=== PATIENT | male | born 1985 | race Caucasian/White ===

== ENCOUNTER 2018-06-26 08:48 | Inpatient (IN) | payer BC ==
[~2018-06-26] VITALS: Ht 170.2 cm; Wt 70.5 kg
--- NOTE | 2018-06-26 09:40 | NUR ---
ACCESS SERVICES REPRESENTATIVE: PT TO ED ROOM 14 FROM LOBBY AT THIS TIME
[2018-06-26] MEDS ORDERED: ATOR20TA37 PO (09:56)
[2018-06-26] MEDS ORDERED: LUVOX PO (09:56)
[2018-06-26] MEDS ORDERED: NALT50TA PO (09:56)
[2018-06-26] MEDS ORDERED: VENL150C PO (09:56)
--- NOTE | 2018-06-26 09:56 | NUR ---
TASK RN: PT AMBULATORY TO ROOM 14 W/ C/O MID ABD PAIN THAT STARTED A FEW DAYS AGO. PT STATES ON HIS WAY TO THE HOSPITAL PT STARTED EXPERIENCING A PANIC ATTACK. PT RESTING ON GURNEY. NADN. MONITORS APPLIED. PT DENIES N/V/D AND BLACK TARRY STOOL. DENIES ANY GI SURGERIES BUT HAS A GALLSTONE DX 1-2 YRS AGO. NO SURGERY RECOMMENDATIONS AT THAT POINT. PIV INITIATED. WARM BLANKET PROVIDED.
[2018-06-26] MEDS ORDERED: KETOROLAC 30 MG/1 ML IVPush ONE (10:00)
[2018-06-26] MEDS ORDERED: SODIUM CHLORIDE FLUSH 10ML SYR IVF ONE (10:00)
[2018-06-26] MEDS ORDERED: HYDROXYZINE PAMOATE 50MG CAP PO ONE (10:00)
[2018-06-26] MEDS ORDERED: KETOROLAC 30 MG/1 ML ONE ×2 (10:02→21:24)
[2018-06-26] MEDS ORDERED: hydrOXyzine 50MG TABLET ONE (10:02)
[2018-06-26 10:09] LABS: BASOPHILS # (AUTO) 0.02 x10^3/uL (0-0.1); BASOPHILS % (AUTO) 0 % (0-1); EOSINOPHILS # (AUTO) 0.14 x10^3/uL (0-0.4); EOSINOPHILS % (AUTO) 2 % (1-7); LYMPHOCYTES # (AUTO) 1.02 x10^3/uL (1-3.4); LYMPHOCYTES % (AUTO) 12 % (22-44); MD NO; MEAN CORPUSCULAR HEMOGLOBIN 30.1 pg (27.5-34.5); MEAN CORPUSCULAR HGB CONC 34.1 g/dL (33.2-36.2); MEAN CORPUSCULAR VOLUME 88.2 fL (81-97); MONOCYTES # (AUTO) 0.68 x10^3/uL (0.2-0.8); MONOCYTES % (AUTO) 8 % (2-9); NEUTROPHILS # (AUTO) 6.46 x10^3/uL (1.8-6.8); NEUTROPHILS % (AUTO) 78 % (42-75); PLATELET COUNT 243 x10^3/uL (130-400); RED BLOOD COUNT 4.93 x10^6/uL (4.38-5.82); RED CELL DISTRIBUTION WIDTH 13.2 % (9.4-14.8)
--- NOTE | 2018-06-26 10:09 | NUR ---
TASK RN: YELLOW SLIP SENT TO PHARMACY FOR VISTARIL MED.
[2018-06-26 10:10] LABS: MICROSCOPIC INDICATED
[2018-06-26 10:15] LABS: ALANINE AMINOTRANSFERASE 69 U/L (12-78); ALBUMIN 4.3 g/dL (3.4-5.0); ANION GAP 7 mmol/L (5-15); CALCIUM 9.2 mg/dL (8.5-10.1); CHLORIDE 106 mmol/L (98-107); CREATININE 1.08 mg/dL (0.7-1.3)
[2018-06-26 10:17] LABS: ALKALINE PHOSPHATASE 84 U/L (45-117); BILIRUBIN,TOTAL 0.5 mg/dL (0.2-1.0); TOTAL PROTEIN 8.2 g/dL (6.4-8.2)
[2018-06-26 10:18] LABS: CULTURE INDICATED? NO
--- NOTE | 2018-06-26 10:28 | NUR ---
TASK RN: PT TAKEN TO XR IN STABLE CONDITION.
--- NOTE | 2018-06-26 10:41 | NUR ---
TASK RN: REPORT GIVEN TO MALLORY BIANCHI.
--- NOTE | 2018-06-26 11:18 | NUR ---
NO CHANGES AT THIS TIME.
--- NOTE | 2018-06-26 11:53 | NUR ---
SBAR REPORT RECEIVED FROM TASH TEJADA.
--- NOTE | 2018-06-26 12:08 | NUR ---
PT BACK TO ROOM FROM US.
[2018-06-26] MEDS ORDERED: MORPHINE SULFATE 4 MG/ML, 1ML IVPush PRN (12:30)
[2018-06-26] MEDS ORDERED: ONDANSETRON 2MG/ML, 2ML IVPush ONE (12:30)
[2018-06-26] MEDS ORDERED: CEFOTETAN PMX 1GM/50ML 50 ML IV ONE (12:30)
[2018-06-26] MEDS ORDERED: ONDANSETRON 2MG/ML, 2ML ONE (12:38)
[2018-06-26] MEDS ORDERED: CEFOTETAN PMX 1GM/50ML 50 ML ONE (12:39)
[2018-06-26] MEDS ORDERED: MORPHINE SULFATE 4 MG/ML, 1ML ONE (12:39)
--- NOTE | 2018-06-26 12:55 | NUR ---
PER MD CARTER, NO BLOOD CS NEEDED PRIOR TO IV ABX.
[2018-06-26] MEDS ORDERED: morphine SULFATE 10 MG/ML, 1ML IVPush PRN (13:00)
[2018-06-26] MEDS ORDERED: ONDANSETRON 2MG/ML, 2ML IVPush PRN (13:00)
[2018-06-26] MEDS ORDERED: DOCUSATE 100 MG CAPSULE PO PRN (13:00)
[2018-06-26] MEDS ORDERED: hydrALAzine 20 MG/ML, 1ML IVPush PRN (13:00)
--- NOTE | 2018-06-26 13:00 | NUR ---
PT MEDICATED PER EMAR. PT TOLERATED WELL. PT AOX4. RESPS EVEN AND UNLABORED.
--- NOTE | 2018-06-26 13:19 | NUR ---
PT TO CT
--- NOTE | 2018-06-26 13:28 | NUR ---
sbar report given to dayanna christensen. all questions answered.
[2018-06-26] MEDS ORDERED: OMNIPAQUE 350 MG/ML, 100ML BOTTLE ONE (13:33)
--- NOTE | 2018-06-26 13:33 | NUR ---
pt pain level reduces 3/10 at this time.
[2018-06-26 15:02] VITALS: BP 126/77
[2018-06-26 15:19] VITALS: BP 126/77
[2018-06-26] MEDS: LACTATED RINGERS 1,000 ML IV SCH (16:45)
[2018-06-26] MEDS ORDERED: BUPIVACAINE/PF-EPI 0.5% 1:200K ONE ×2 (17:46→20:01)
[2018-06-26 19:04] VITALS: BP 118/76
[2018-06-26] MEDS ORDERED: MIDAZOLAM 1 MG/ML, 2ML ONE (20:08)
[2018-06-26] MEDS ORDERED: FENTANYL PF 250 MCG/5ML ONE (20:08)
[2018-06-26] MEDS ORDERED: CEFAZOLIN 1,000 MG ONE (20:15)
[2018-06-26] MEDS ORDERED: DEXAMETHASONE 4 MG/ML, 1ML ONE (20:15)
[2018-06-26] MEDS ORDERED: ESMOLOL 100 MG/10 ML ONE (20:15)
[2018-06-26] MEDS ORDERED: PROPOFOL 10 MG/ML, 20ML ONE (20:15)
[2018-06-26] MEDS ORDERED: ROCURONIUM 10 MG/ML,10ML ONE (20:15)
[2018-06-26] MEDS ORDERED: SUCCINYLCHOLINE 20 MG/ML, 10ML ONE (20:15)
[2018-06-26] MEDS ORDERED: SUGAMMADEX 200 MG/2 ML IVPush ONE (20:44)
[2018-06-26] MEDS ORDERED: ACETAMINOPHEN 325 MG TABLET PO PRN (21:00)
[2018-06-26] MEDS ORDERED: MEPERIDINE/PF 25MG/0.5ML IVPush PRN (21:00)
[2018-06-26] MEDS ORDERED: HYDROmorphone 2 MG/ML, 1ML IVPush PRN (21:00)
[2018-06-26] MEDS ORDERED: KETOROLAC 30 MG/1 ML IV PRN (21:00)
[2018-06-26] MEDS ORDERED: OXYcodone 5 MG/5 ML ORAL.SOL UDC PO PRN (21:00)
[2018-06-26] MEDS ORDERED: LORazepam 2 MG/ML, 1ML IVPush PRN (21:00)
[2018-06-26] MEDS ORDERED: FENTANYL PF 100 MCG/2ML IV PRN (21:00)
[2018-06-26] MEDS ORDERED: OXYcodone 5 MG/5 ML ORAL.SOL UDC ONE (21:19)
[2018-06-26] MEDS ORDERED: HYDROmorphone 1 MG/ML, 1ML ONE (21:42)
[2018-06-26] MEDS ORDERED: MEPERIDINE/PF 25MG/ML,1ML ONE (21:52)
[2018-06-26 22:24] VITALS: BP 121/82
[2018-06-27 00:33] VITALS: BP 134/91
[2018-06-27] MEDS ORDERED: OXYcodone IR 5MG TABLET PO PRN (01:30)
[2018-06-27 04:21] VITALS: BP 125/88
[2018-06-27 04:42] LABS: BASOPHILS % (AUTO) 0 % (0-1); EOSINOPHILS % (AUTO) 0 % (1-7); LYMPHOCYTES % (AUTO) 6 % (22-44); MD NO; MEAN CORPUSCULAR HEMOGLOBIN 30.9 pg (27.5-34.5); MEAN CORPUSCULAR HGB CONC 34.6 g/dL (33.2-36.2); MEAN CORPUSCULAR VOLUME 89.1 fL (81-97); MEAN PLATELET VOLUME 8.1 fL (7.4-10.4); MONOCYTES # (AUTO) 0.03 x10^3/uL (0.2-0.8); MONOCYTES % (AUTO) 0 % (2-9); NEUTROPHILS # (AUTO) 7.76 x10^3/uL (1.8-6.8); NEUTROPHILS % (AUTO) 94 % (42-75); PLATELET COUNT 223 x10^3/uL (130-400); RED BLOOD COUNT 4.51 x10^6/uL (4.38-5.82); RED CELL DISTRIBUTION WIDTH 13.1 % (9.4-14.8)
[2018-06-27 04:48] LABS: ANION GAP 5 mmol/L (5-15); CALCIUM 9.1 mg/dL (8.5-10.1); CHLORIDE 106 mmol/L (98-107)
[2018-06-27 07:07] VITALS: BP 121/77
[2018-06-27] MEDS: LACTATED RINGERS 1,000 ML IV SCH (08:08)
[2018-06-27] MEDS ORDERED: DOCU-131 PO (10:50)
[2018-06-27] MEDS ORDERED: ACET325T14 PO (10:54)
== END 2018-06-27 11:30 | disposition home or self-care (01) | DRG 419 ==
LOC: ED 10:43 → EDIP 12:36 → 3NW 13:47 → DCLOUNGE 06-27 11:10
PROVIDERS: ADMIT Internal Medicine; ATTEND Internal Medicine
PROC: 0FT44ZZ Resection of Gallbladder, Percutaneous Endoscopic Approach (ICD-10-PCS; principal; 2018-06-26 15:30)
DX: K80.12 Calculus of gallbladder with acute and chronic cholecystitis without obstruction (principal); E87.6 Hypokalemia; F32.9 Major depressive disorder, single episode, unspecified; Z88.2 Allergy status to sulfonamides; E78.5 Hyperlipidemia, unspecified; G47.33 Obstructive sleep apnea (adult) (pediatric); R06.4 Hyperventilation; F41.1 Generalized anxiety disorder; K82.8 Other specified diseases of gallbladder; Z87.891 Personal history of nicotine dependence
CPT/HCPCS: 36415; 74021; 74177; 76700; 80048; 80053; 81001; 83690; 85025; 88304; 93005; 96374; 96375; 99285; G0378; J0690; J1100; J1170; J1885; J2250; J2405; J2704; J3010; Q9967; J0330; J2270; J3490; J7120